=== PATIENT | male | born 1995 | race Caucasian/White ===

== ENCOUNTER 2018-10-02 01:10 | Emergency (ER) | payer OTHER ==
[~2018-10-02] VITALS: Ht 165.1 cm; Wt 101.2 kg
[2018-10-02 01:19] VITALS: BP 125/76
--- NOTE | 2018-10-02 01:19 | NUR ---
TO BED # 3 AMBULATORY, REPORT GIVEN TO WALDO MONTES
--- NOTE | 2018-10-02 01:25 | NUR ---
22/M ARRIVES TO ED WITH MOTHER, C/O 06/02 INTERMITTENT ACHING/HARD EPIGASTRIC PAIN, NONRADIATING, INTERMITTENTLY X4 DAYS. PT REPORTS BURPS AND UNUSUAL TASTE, "LIKE EGGS." PT REPORTS DIARRHEA, LBM TODAY. PT DENIES FEVER, N/V OR CONSTIPATION. AOX4, GCS 15, AMBULATORY, RR EVEN AND UNLABORED. LUNG SOUNDS CLEAR BL. BS ACTIVE X4, ABD SOFT ROUND NONTENDER. HX CHILDHOOD ASTHMA NO RX
[2018-10-02] MEDS ORDERED: DICYCLOMINE HCL LIQUID 20 MG, ALUMINUM HYD/MAG/SIMETHICONE 30 ML, LIDOCAINE VISCOUS 2% ... PO ONE ×3 (01:50)
[2018-10-02] MEDS ORDERED: DICYCLOMINE 20 MG/2 ML VIAL IM ONE (01:50)
--- NOTE | 2018-10-02 02:35 | NUR ---
PT LAYING IN BED, RR EVEN AND UNLABORED. PT REPORTS IMPROVEMENT IN PAIN RELIEF AFTER MEDS, 4/10 AT THIS TIME. ALL NEEDS MET.
[2018-10-02 03:09] VITALS: BP 139/60
--- NOTE | 2018-10-02 03:09 | NUR ---
Patient discharged with v/s stable. Written and verbal after care instructions given and explained. Patient alert, oriented and verbalized understanding of instructions. Ambulatory with steady gait. All questions addressed prior to discharge. ID band removed. Patient advised to follow up with PMD. Rx of BENTYL given. Patient educated on indication of medication including possible reaction and side effects. Opportunity to ask questions provided and answered.
== END 2018-10-02 03:09 | disposition home or self-care (01) ==
LOC: MED 01:10
DX: R10.13 Epigastric pain (principal); R19.7 Diarrhea, unspecified
CPT/HCPCS: 81002; 96372; 99283; J0500

== ENCOUNTER 2019-10-30 04:38 | Emergency (ER) | payer OTHER ==
[~2019-10-30] VITALS: Ht 167.6 cm; Wt 104.3 kg
[2019-10-30 04:47] VITALS: BP 151/78
--- NOTE | 2019-10-30 04:51 | NUR ---
PT AMBULATED TO BED 5 WITH STEADY GAIT.
--- NOTE | 2019-10-30 05:00 | NUR ---
PT C/O ABD PAIN X 3 HOURS. PT APPEARS TO BE IN NO DISTRESS. PT STATES PAIN STARTED AND WOKE HIM UP FROM SLEEP. PT STATES PAIN IS INTERMITTEN. DENIES N/V/D. PT ATE QATARI FOOD LAST NIGHT. PT DENIES BURNING PAIN. NORMAL BS. NO CHANGES IN NORMAL DIET. DENIES SOB OR C/P.SKIN IS PINK/WARM/DRY; AAOX4 WITH EVEN AND STEADY GAIT; LUNGS CLEAR BL; HR EVEN AND REGULAR; PT DENIES ANY FEVER, CP, SOB, OR COUGH AT THIS TIME; PATIENT STATES PAIN OF 8/10 AT THIS TIME; VSS; PATIENT POSITIONED FOR COMFORT; HOB ELEVATED; BEDRAILS UP X1; BED DOWN. ER MD MADE AWARE OF PT STATUS.
--- NOTE | 2019-10-30 05:27 | NUR ---
Dr. Dash examining patient.
[2019-10-30] MEDS ORDERED: DICYCLOMINE HCL LIQUID 20 MG, ALUMINUM HYD/MAG/SIMETHICONE 30 ML, LIDOCAINE VISCOUS 2% ... PO ONE ×3 (05:30)
[2019-10-30] MEDS ORDERED: LIDOCAINE VISCOUS 2% 20 ML UDC ONE (05:31)
[2019-10-30] MEDS ORDERED: ALUMINUM HYD/MAG/SIMETHICONE 30 ML UDC ONE (05:31)
[2019-10-30] MEDS ORDERED: DICYCLOMINE HCL LIQUID 10 MG/5 ML UDC ONE (05:31)
[2019-10-30 05:52] VITALS: BP 151/78
--- NOTE | 2019-10-30 05:52 | NUR ---
PT APPEARS TO BE IN NO DISTRESS AT THIS TIME. VSS. PT STATES FEELING BETTER AFTER GI COCKTAIL. Patient discharged with v/s stable. Written and verbal after care instructions given and explained. Patient alert, oriented and verbalized understanding of instructions. Ambulatory with steady gait. All questions addressed prior to discharge. ID band removed. Patient advised to follow up with PMD. Rx of MYLANTA given. Patient educated on indication of medication including possible reaction and side effects. Opportunity to ask questions provided and answered.
== END 2019-10-30 05:52 | disposition home or self-care (01) ==
LOC: MED 04:38
DX: R10.9 Unspecified abdominal pain (principal); F12.10 Cannabis abuse, uncomplicated
CPT/HCPCS: 99282